=== PATIENT | female | born 1960 | race Two or more races ===

== ENCOUNTER 2024-02-13 00:40 | Emergency (ER) | payer OTHER ==
[~2024-02-13] VITALS: Ht 160 cm; Wt 85.7 kg
[2024-02-13] MEDS ORDERED: KETOROLAC TROMETHAMINE 60 MG VIAL IM STA (03:03)
[2024-02-13] MEDS ORDERED: LIDOCAINE HCL 120 ML ML MM STA (03:04)
[2024-02-13] MEDS ORDERED: TRIAMCINOLONE ACETONIDE 40 MG/ML VIAL IM STA (03:04)
[2024-02-13] MEDS ORDERED: MAG HYDROX/ALUMINUM HYD/SIMETH 30 ML BLIST.PACK PO STA (03:05)
[2024-02-13] MEDS ORDERED: ORASEP SPRAY30 ML MM (03:22)
== END 2024-02-13 03:27 ==
LOC: ER 00:42
DX: J02.9 Acute pharyngitis, unspecified (principal)

== ENCOUNTER 2024-02-17 18:08 | Emergency (ER) | payer OTHER ==
[~2024-02-17] VITALS: Ht 165.1 cm; Wt 84.8 kg
[~2024-02-17 18:08] MED LIST: ORASEP SPRAY30 ML MM
[2024-02-17] MEDS ORDERED: KETOROLAC TROMETHAMINE 60 MG VIAL IM STA (22:25)
== END 2024-02-17 22:43 | disposition home or self-care (01) ==
LOC: ER 18:10
DX: S93.492A Sprain of other ligament of left ankle, initial encounter (principal); X37.1XXA Tornado, initial encounter; Y93.89 Activity, other specified; Y92.018 Other place in single-family (private) house as the place of occurrence of the external cause
CPT/HCPCS: 73610; 73630; 96372; 99283; J1885

== ENCOUNTER 2024-05-13 13:52 | Outpatient (CLI) | payer OTHER | END 2024-05-13 14:02 | disposition home or self-care (01) | LOC: RAD 13:52 | PROVIDERS: ATTEND Orthopaedic Surgery | DX: M25.572 Pain in left ankle and joints of left foot (principal) ==